=== PATIENT | female | born 1970 | race African-American/Black ===

== ENCOUNTER 2018-06-29 11:09 | Emergency (ER) | payer MEDICAID, SELFPAY ==
[~2018-06-29] VITALS: Ht 160 cm; Wt 61.2 kg
[~2018-06-29 11:09] MED LIST: ALBUTEROL SULF8.5 GM INH; COUMADIN10 MG ORAL; COUMADIN5 MG ORAL
[2018-06-29] MEDS ORDERED: OMEPRAZOLE10 M1 ORAL (11:11)
[2018-06-29] MEDS ORDERED: LOVENOX300 MG/3 M SUBQ (11:11)
--- NOTE | 2018-06-29 11:30 | NUR ---
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 upon arrival pain level decreased to 4/10 but pt reported it gets worse with position changing. pt AAO x4 skin intact and on room air.
[2018-06-29 11:34] VITALS: BP 111/64
[2018-06-29] MEDS: Morphine Sulfate 4mg/ml Inj (IV/IM USE ONLY) IVP ONE ×2 (11:44→11:52)
[2018-06-29] MEDS ORDERED: Isovue-370 150ml vial INJ PRN (11:45)
[2018-06-29] MEDS ORDERED: Aspirin Baby 81mg ORAL ONE (11:45)
--- NOTE | 2018-06-29 11:52 | NUR ---
ED Nurse Note: Pt refused Morphine x3 as stating "I never take those kinds of medications." MD made aware and order has been canceled.
[2018-06-29 12:01] LABS: EOSINOPHILS % (AUTO) 12.2 % (0.0-3.0); HEMATOCRIT 25.1 % (37.0-47.0); HEMOGLOBIN 8.8 G/DL (12.0-16.0); MEAN CORPUSCULAR VOLUME 98 FL (80-99); MONOCYTES % (AUTO) 5.9 % (1.0-10.0); PLATELET COUNT 321 K/UL (150-450); RED BLOOD COUNT 2.57 M/UL (4.20-5.40); RED CELL DISTRIBUTION WIDTH 15.6 % (11.6-14.8); WHITE BLOOD COUNT 7.3 K/UL (4.8-10.8)
--- NOTE | 2018-06-29 12:17 | NUR ---
ED Nurse Note: pt refused to sign on CT with constrast consent as stating "What if i don't want it? I need to talk to the CT scan person before i sign." new iv line on ac for CT with constrast will be waited until pt agrees with it.
[2018-06-29 12:30] LABS: ANION GAP 10 mmol/L (5-15); BLOOD UREA NITROGEN 7 mg/dL (7-18); CALCIUM 8.9 MG/DL (8.5-10.1); CARBON DIOXIDE 24 MMOL/L (21-32); CHLORIDE 104 MMOL/L (98-107); CREATININE 0.5 MG/DL (0.55-1.30); POTASSIUM 3.7 MMOL/L (3.5-5.1); SODIUM 138 MMOL/L (136-145)
--- NOTE | 2018-06-29 12:31 | NUR ---
ED Nurse Note: Called radiology and asked the loom technician to come and talk to the pt as pt requested.
--- NOTE | 2018-06-29 12:37 | NUR ---
ED Nurse Note: plant and maintenance technician came and spoke to pt regarding possible SE of contrast. pt requesting to talk to doctor. doctor made aware.
[2018-06-29 12:43] LABS: ALANINE AMINOTRANSFERASE 60 U/L (12-78); ALBUMIN 3.7 G/DL (3.4-5.0); ALBUMIN/GLOBULIN RATIO 0.8 (1.0-2.7); ALKALINE PHOSPHATASE 162 U/L (46-116); ASPARTATE AMINO TRANSFERASE 62 U/L (15-37); BILIRUBIN,TOTAL 1.6 MG/DL (0.2-1.0); CKMB < 0.5 NG/ML (0.0-3.6); CREATINE KINASE 54 U/L (26-308)
[2018-06-29 12:44] LABS: BILIRUBIN,DIRECT 0.6 MG/DL (0.0-0.3)
--- NOTE | 2018-06-29 13:00 | NUR ---
ED Nurse Note: Pt was witnessed disconnecting herself from monitor and stating "I need to go. I have important appointment at 2pm that i cannot miss!" Convinced pt to stay and speak to the doctor prior to leave but pt refused x3 as stating "I've got to go. I am leaving." Pt's friend came already to pick her up. Pt signed on AMA consent and instructed on risk of leaving AMA with chest pain present. Pt still insisted to go AMA and tried to pull out IV on her own. Nurse removed iv and informed the doctor. pt ambulated to outside to take her friend's car. id band removed.
[2018-06-29 13:20] VITALS: BP 111/64
--- NOTE | 2018-06-29 15:17 | Diagnostic Imaging Report ---
Indication: Cough Technique: One view of the chest Comparison: 10/31/2012 Findings: The heart is enlarged. Lungs and pleural spaces are clear. Impression: Cardiomegaly. No acute process
--- NOTE | 2018-06-29 15:31 | Emergency Room Report ---
History of Present Illness General Chief Complaint: Chest Pain Source: Medical Record Present Illness HPI Patient has a history of DVT and sickle cell anemia. Patient presents emergency department today complaining of chest pain. Patient states that she' s had chest pain intermittently for the last week. Chest pain is worse with exertion. Chest pain was described as retrosternal associated with some mild shortness of breath. No cough.She denies any leg pain leg swelling. Denies any cough runny nose or sore throat. Symptoms were noted to be severe. Patient currently is chest pain-free.No other modifying factors. No other associated signs and symptoms. No other complaints were noted. Allergies: Coded Allergies: METRONIDAZOLE (Unverified Allergy, Unknown, 06/29/18) Uncoded Allergies: FLAGYL (Allergy, Unknown, 06/29/18) Patient History Past Medical History: other - Sickle cell disease, DVT Past Surgical History: none Pertinent Family History: none Social History: Denies: smoking, alcohol use, drug use Now: No Reviewed Nursing Documentation: PMH: Agreed; PSxH: Agreed Nursing Documentation-PMH Hx Cardiac Problems: Yes - SICKLE CELL, BLOOD CLOT Hx Gastrointestinal Problems: Yes History Of Psychiatric Problem: Yes Review of Systems All Other Systems: negative except mentioned in HPI Physical Exam Vital Signs Date Time Temp Pulse Resp B/P (MAP) Pulse Ox O2 Delivery O2 Flow Rate FiO2 06/29/18 11:01 85 18 144/78 98 Room Air 06/29/18 11:34 98.0 06/29/18 11:34 98 Sp02 EP Interpretation: reviewed, normal General Appearance: normal inspection, well appearing, no apparent distress, alert Head: atraumatic Eyes: bilateral eye normal inspection ENT: normal ENT inspection, hearing grossly normal, normal voice Neck: normal inspection, full range of motion, supple, no bony tend Respiratory: normal inspection, lungs clear, normal breath sounds, no respiratory distress, no retraction, no wheezing Cardiovascular #1: regular rate, rhythm, no edema Gastrointestinal: normal inspection, normal bowel sounds, non tender, soft, no guarding, no hernia Genitourinary: no CVA tenderness Musculoskeletal: normal inspection, back normal, normal range of motion Neurologic: normal inspection, alert, responsive, speech normal Psychiatric: normal inspection, judgement/insight normal, mood/affect normal Skin: normal inspection, normal color, no rash Medical Decision Making Diagnostic Impression: Primary Impression: Chest pain ER Course Patient presented to the emergency department today complaining of chest pain. Differential diagnoses include acute coronary syndrome, pulmonary embolism, pneumothorax, chest wall pain, pleurisy, pericarditis, acute anxiety reaction just to name a few. Given the severity of the patient's presentation I felt this is a highly complex patient. This patient required extensive workup. CBC , chemistry, EKG, chest x-ray, cardiac enzymes, liver profile were all obtained. 12-lead EKG performed for nontraumatic chest pain. PQRS documentation: EKG was performed. Please refer to below for interpretation. Patient's laboratory workup was negative except for evidence of anemia which is consistent with patient sickle cell anemia. However given patient's presentation was concerned about possibility of pulmonary embolism although this is less likely given the patient is on Coumadin. CT scan of chest was ordered but patient refused a CT scan. I discussed this with the patient and offered to do ultrasound instead and patient was advised that she needed to be admitted to the hospital. Patient however declined admission. Patient apparently left the hospital AGAINST MEDICAL ADVICE. Patient understands the risk of leaving the hospital against medical advise she was given making decisions risks include . Patient signed the hospital AMA form.Patient is advised to follow up with primary doctor in and return the emergency room for any worsening symptoms and as needed. Labs Test 06/29/18 11:30 White Blood Count 7.3 K/UL (4.8-10.8) Red Blood Count 2.57 M/UL (4.20-5.40) Hemoglobin 8.8 G/DL (12.0-16.0) Hematocrit 25.1 % (37.0-47.0) Mean Corpuscular Volume 98 FL (80-99) Mean Corpuscular Hemoglobin 34.2 PG (27.0-31.0) Mean Corpuscular Hemoglobin Concent 35.0 G/DL (32.0-36.0) Red Cell Distribution Width 15.6 % (11.6-14.8) Platelet Count 321 K/UL (150-450) Mean Platelet Volume 7.3 FL (6.5-10.1) Neutrophils (%) (Auto) 31.0 % (45.0-75.0) Lymphocytes (%) (Auto) 49.0 % (20.0-45.0) Monocytes (%) (Auto) 5.9 % (1.0-10.0) Eosinophils (%) (Auto) 12.2 % (0.0-3.0) Basophils (%) (Auto) 2.0 % (0.0-2.0) Prothrombin Time 19.9 SEC (9.30-11.50) Prothromb Time International Ratio 2.0 (0.9-1.1) Activated Partial Thromboplast Time 30 SEC (23-33) Sodium Level 138 MMOL/L (136-145) Potassium Level 3.7 MMOL/L (3.5-5.1) Chloride Level 104 MMOL/L (98-107) Carbon Dioxide Level 24 MMOL/L (21-32) Anion Gap 10 mmol/L (5-15) Blood Urea Nitrogen 7 mg/dL (7-18) Creatinine 0.5 MG/DL (0.55-1.30) Estimat Glomerular Filtration Rate > 60 mL/min (>60) Glucose Level 85 MG/DL (74-106) Calcium Level 8.9 MG/DL (8.5-10.1) Total Bilirubin 1.6 MG/DL (0.2-1.0) Direct Bilirubin 0.6 MG/DL (0.0-0.3) Aspartate Amino Transf (AST/SGOT) 62 U/L (15-37) Alanine Aminotransferase (ALT/SGPT) 60 U/L (12-78) Alkaline Phosphatase 162 U/L (46-116) Total Creatine Kinase 54 U/L (26-308) Creatine Kinase MB < 0.5 NG/ML (0.0-3.6) Creatine Kinase MB Relative Index Troponin I 0.023 ng/mL (0.000-0.056) Total Protein 8.2 G/DL (6.4-8.2) Albumin 3.7 G/DL (3.4-5.0) Globulin 4.5 g/dL Albumin/Globulin Ratio 0.8 (1.0-2.7) Lipase 180 U/L (73-393) EKG Diagnostic Results Rate: normal Rhythm: NSR ST Segments: no acute changes Rhythm Strip Diag. Results EP Interpretation: yes Rate: 78 Rhythm: NSR, no PVC's, no ectopy Chest X-Ray Diagnostic Results Chest X-Ray Diagnostic Results : Chest X-Ray Ordered: Yes # of Views/Limited/Complete: 1 View Indication: Shortness of Breath EP Interpretation: No Interpretation: no consolidation, no effusion, no pneumothorax, other - Cardiomegaly Impression: No acute disease Last Vital Signs Date Time Temp Pulse Resp B/P (MAP) Pulse Ox O2 Delivery O2 Flow Rate FiO2 06/29/18 11:34 82 18 Room Air 98 06/29/18 11:34 98.0 111/64 98 Status: unchanged Disposition: AGAINST MEDICAL ADVICE Condition: Stable Referrals: NOT CHOSEN IPA/,REFERRING (PCP) Marshall Keller MD Jun 29, 2018 15:30
--- NOTE | 2018-06-30 17:42 | Cardiology Report ---
APPROVED REPORT EKG Measurement Heart [id number] Normal sinus rhythm Prolonged QT Abnormal ECG
== END 2018-06-29 13:20 | disposition left against medical advice (07) ==
LOC: EDBD 11:09 → EMR 12:30 → CANBEDREQ 13:19 → EMR 13:20
DX: R07.9 Chest pain, unspecified (principal); D57.1 Sickle-cell disease without crisis; Z88.1 Allergy status to other antibiotic agents
CPT/HCPCS: 36415; 71045; 80053; 82248; 82550; 82553; 83690; 84484; 85025; 85610; 85730; 93005; 96360; 99284